=== PATIENT | female | born 1960 | race Caucasian/White ===

== ENCOUNTER → 2021-04-22 | Outpatient (CLI) | payer OTHER | LOC: KOH-I 04-18 08:00 | DX: M86.9 Osteomyelitis, unspecified (principal) | CPT/HCPCS: 73718 ==

== ENCOUNTER 2021-05-23 14:56 | Inpatient (IN) | payer OTHER ==
[~2021-05-23] VITALS: Ht 170.2 cm; Wt 89.4 kg
[2021-05-23] MEDS ORDERED: ZANAFLEX 4 MG TA4 MG PO (17:46)
[2021-05-23] MEDS ORDERED: HYDROCODON-ACE1 EAC6 PO (17:46)
[2021-05-23] MEDS ORDERED: ELIQUIS5 MG PO (17:46)
[2021-05-23] MEDS ORDERED: LEVOTHYROXINE50 MCG PO (17:46)
[2021-05-23] MEDS ORDERED: VITAMIN C 500500 MG PO (17:48)
[2021-05-23] MEDS ORDERED: BUMETANIDE1 MG PO (17:48)
[2021-05-23] MEDS ORDERED: PREGABALIN50 MG PO (17:49)
[2021-05-23] MEDS ORDERED: ATORVASTATIN CA40 MG PO (17:49)
[2021-05-23] MEDS ORDERED: CLOPIDOGREL75 MG PO (17:50)
[2021-05-23] MEDS ORDERED: COREG 25MG TAB25 MG PO (17:50)
[2021-05-23] MEDS ORDERED: TIZANIDINE HCL4 MG PO (17:51)
[2021-05-23] MEDS ORDERED: PROTONIX 40 MG40 M1 PO (17:51)
[2021-05-23] MEDS ORDERED: COQ-10100 MG PO (17:54)
[2021-05-23] MEDS ORDERED: NOVOLOG FL100 UNIT/1 SQ (18:05)
[2021-05-23] MEDS ORDERED: BENTYL 10MG CAP10 MG PO (18:06)
[2021-05-23] MEDS ORDERED: BUSPIRONE HCL5 MG PO (18:08)
[2021-05-23] MEDS ORDERED: CYCLOBENZAPRINE10 MG PO (18:09)
[2021-05-23] MEDS ORDERED: FLONASE 0.05% N16 GM (18:10)
[2021-05-23] MEDS ORDERED: CLARITIN10 MG PO (18:10)
[2021-05-23] MEDS ORDERED: VOLTAREN ARTHRI20 GM TOP (18:11)
[2021-05-23 19:57] LABS: RED BLOOD COUNT 3.29 M/UL (4.00-5.10); WHITE BLOOD COUNT 5.4 K/UL (4.5-11.0)
--- NOTE | 2021-05-24 05:29 | NUR ---
PT HASNT PEED SINCE 1800 05/23/21 STATES THAT THIS IS NORMAL FOR HER AND IS NOT FEELING PRESSURE IN HER BLADDER. BLADDER IS NOT DISTENDED. PT STATES SHE WILL PEE IN THE MORNING WHEN SHE GETS UP. PT HAS RECENNTLY CAME OFF DIALYSIS AND STATES SHE ONLY PEES A FEW TIMES A DAY.
--- NOTE | 2021-05-24 05:42 | NUR ---
PT STATES SHE DOES NOT WANT A BLADDR SCAN AND IT WILL BE FINE/
[2021-05-24 09:32] LABS: HEMOGLOBIN 10.7 gm/dl (12.3-15.3); RED BLOOD COUNT 3.26 M/UL (4.00-5.10); WHITE BLOOD COUNT 3.9 K/UL (4.5-11.0)
[2021-05-25 06:05] LABS: HEMOGLOBIN 9.9 gm/dl (12.3-15.3); RED BLOOD COUNT 2.97 M/UL (4.00-5.10); WHITE BLOOD COUNT 4.2 K/UL (4.5-11.0)
[2021-05-26 07:15] LABS: HEMOGLOBIN 9.7 gm/dl (12.3-15.3); RED BLOOD COUNT 2.92 M/UL (4.00-5.10); WHITE BLOOD COUNT 3.6 K/UL (4.5-11.0)
[2021-05-27 05:09] LABS: HEMOGLOBIN 10.5 gm/dl (12.3-15.3); RED BLOOD COUNT 3.2 M/UL (4.00-5.10); WHITE BLOOD COUNT 3.7 K/UL (4.5-11.0)
--- NOTE | 2021-05-27 11:18 | NUR ---
NOTIFIED DR. GUTHRIE THAT DR. KOVACS SAID WE COULD PULL THE PTS. DIALYSIS CATH TODAY IN ORDER TO PUT CENTRAL LINE IN FOR SENIOR CARE ABX. HE SPOKE WITH PTS. PRIMARY VENEREAL DISEASE CONTROL HEAD AND THERE IS NOT A NEED FOR THE [facility] DIALYSIS CATH AT THIS TIME. SHE STATED THAT SHE KNEW AND WAS GOING TO NOTIFY DR. MONTENEGRO.
--- NOTE | 2021-05-27 15:12 | NUR ---
CALLED DR. MONTENEGRO TO SEE IF HE WAS PLANNING TO TAKE PT TO "OR" TODAY FOR DIAYLSIS CATH REMOVAL AND CENTRAL LINE PLACEMENT..AWAITING A CALL BACK.
[2021-05-28 06:50] LABS: HEMOGLOBIN 9.7 gm/dl (12.3-15.3); RED BLOOD COUNT 2.93 M/UL (4.00-5.10); WHITE BLOOD COUNT 3.3 K/UL (4.5-11.0)
[2021-05-28 07:36] LABS: BUN/CREATININE RATIO 32 (0-10)
--- NOTE | 2021-05-29 10:16 | NUR ---
DR. JACQUI MONTENEGRO ASKED WHETHER WE CAN USE [facility] AFTER NEW PLACEMENT YESTERDAY AND DR. MONTENEGRO CONFIRMS IT IS OK TO USE.
[2021-05-29] MEDS ORDERED: DECADRON6 MG PO (18:48)
[2021-05-29] MEDS ORDERED: INVANZ 1 GM VIAL1 GM IV (18:48)
[2021-05-29] MEDS ORDERED: DEX4 GLUCOSE4 GM PO (18:48)
== END 2021-05-29 20:30 | disposition home or self-care (01) | DRG 637 ==
LOC: M/S 14:56
PROVIDERS: Physician Assistant; Surgery; ADMIT Internal Medicine
PROC: 0JH63XZ Insertion of Tunneled Vascular Access Device into Chest Subcutaneous Tissue and Fascia, Percutaneous Approach (ICD-10-PCS; 2021-05-28)
PROC: 02HV33Z Insertion of Infusion Device into Superior Vena Cava, Percutaneous Approach (ICD-10-PCS; 2021-05-28)
PROC: XW033E5 Introduction of Remdesivir Anti-infective into Peripheral Vein, Percutaneous Approach, New Technology Group 5 (ICD-10-PCS; 2021-05-28)
PROC: 3E0333Z Introduction of Anti-inflammatory into Peripheral Vein, Percutaneous Approach (ICD-10-PCS; 2021-05-28)
PROC: 0JPT3XZ Removal of Tunneled Vascular Access Device from Trunk Subcutaneous Tissue and Fascia, Percutaneous Approach (ICD-10-PCS; principal; 2021-05-28 15:30)
PROC: 02PYX3Z Removal of Infusion Device from Great Vessel, External Approach (ICD-10-PCS; 2021-05-28 15:30)
DX: E11.69 Type 2 diabetes mellitus with other specified complication (principal); U07.1 COVID-19; J96.21 Acute and chronic respiratory failure with hypoxia; I13.0 Hypertensive heart and chronic kidney disease with heart failure and stage 1 through stage 4 chronic kidney disease, or unspecified chronic kidney disease; M86.672 Other chronic osteomyelitis, left ankle and foot; M86.172 Other acute osteomyelitis, left ankle and foot; I50.9 Heart failure, unspecified; F41.9 Anxiety disorder, unspecified; K58.9 Irritable bowel syndrome, unspecified; J30.9 Allergic rhinitis, unspecified; K21.9 Gastro-esophageal reflux disease without esophagitis; E03.9 Hypothyroidism, unspecified; E11.40 Type 2 diabetes mellitus with diabetic neuropathy, unspecified; E11.319 Type 2 diabetes mellitus with unspecified diabetic retinopathy without macular edema; E11.621 Type 2 diabetes mellitus with foot ulcer; I48.0 Paroxysmal atrial fibrillation; E11.22 Type 2 diabetes mellitus with diabetic chronic kidney disease; G89.4 Chronic pain syndrome; Z96.1 Presence of intraocular lens; N18.30 Chronic kidney disease, stage 3 unspecified; D63.1 Anemia in chronic kidney disease; B96.20 Unspecified Escherichia coli [E. coli] as the cause of diseases classified elsewhere; E78.5 Hyperlipidemia, unspecified; E83.42 Hypomagnesemia; Z79.4 Long term (current) use of insulin; I69.392 Facial weakness following cerebral infarction; I25.2 Old myocardial infarction; Z99.2 Dependence on renal dialysis; Z79.01 Long term (current) use of anticoagulants; Z89.422 Acquired absence of other left toe(s); Z89.421 Acquired absence of other right toe(s); Z90.49 Acquired absence of other specified parts of digestive tract; Z95.1 Presence of aortocoronary bypass graft; Z80.1 Family history of malignant neoplasm of trachea, bronchus and lung; Z80.59 Family history of malignant neoplasm of other urinary tract organ; Z82.49 Family history of ischemic heart disease and other diseases of the circulatory system; Z88.1 Allergy status to other antibiotic agents; Z88.8 Allergy status to other drugs, medicaments and biological substances; Z98.42 Cataract extraction status, left eye; Z98.41 Cataract extraction status, right eye
CPT/HCPCS: 36415; 71045; 77001; 80053; 81001; 82607; 82746; 82962; 83036; 83605; 83735; 84100; 85025; 85610; 85652; 85730; 86140; 87040; 87070; 87077; 87086; 87186; 87205; 93005; C1713; C1751; C1769; J0690; J0692; J1100; J1335; J1642; J1650; J2250; J2405; J2704; J3010; J3475; J7030; J7120; U0002